=== PATIENT | male | born 1980 | race Caucasian/White ===

== ENCOUNTER 2017-10-09 12:38 | Emergency (ER) | payer SELFPAY ==
[~2017-10-09] VITALS: Ht 160 cm; Wt 79.4 kg
[2017-10-09 13:28] VITALS: BP 159/103; Ht 160 cm; Wt 79.4 kg
== END 2017-10-09 13:55 | disposition left against medical advice (07) ==
LOC: ED 12:38
DX: Z53.21 Procedure and treatment not carried out due to patient leaving prior to being seen by health care provider (principal)

== ENCOUNTER 2018-03-06 20:42 | Emergency (ER) | payer SELFPAY ==
[~2018-03-06] VITALS: Ht 162.6 cm; Wt 83.9 kg
[2018-03-06 21:53] VITALS: BP 158/97; Ht 162.6 cm; Wt 83.9 kg
== END 2018-03-06 23:55 | disposition home or self-care (01) ==
LOC: ED 20:42
DX: S93.401A Sprain of unspecified ligament of right ankle, initial encounter (principal); X58.XXXA Exposure to other specified factors, initial encounter; Y93.89 Activity, other specified; Y92.89 Other specified places as the place of occurrence of the external cause; Y99.8 Other external cause status

== ENCOUNTER 2018-03-30 22:55 | Emergency (ER) | payer SELFPAY ==
[~2018-03-30] VITALS: Ht 160 cm; Wt 81.3 kg
[2018-03-30 23:52] VITALS: Ht 160 cm; Wt 81.3 kg
[2018-03-31 02:00] VITALS: BP 137/101
== END 2018-03-31 02:00 | disposition home or self-care (01) ==
LOC: ED 22:55
DX: S62.603A Fracture of unspecified phalanx of left middle finger, initial encounter for closed fracture (principal); W01.0XXA Fall on same level from slipping, tripping and stumbling without subsequent striking against object, initial encounter; Y93.66 Activity, soccer; Y92.322 Soccer field as the place of occurrence of the external cause; Y99.8 Other external cause status

== ENCOUNTER 2018-08-27 19:16 | Emergency (ER) | payer SELFPAY ==
[~2018-08-27] VITALS: Ht 167.6 cm; Wt 86.2 kg
[2018-08-27 19:30] VITALS: BP 129/78; Ht 167.6 cm; Wt 86.2 kg
== END 2018-08-27 21:39 | disposition left against medical advice (07) ==
LOC: ED 19:16
DX: Z53.21 Procedure and treatment not carried out due to patient leaving prior to being seen by health care provider (principal)

== ENCOUNTER 2018-10-31 04:17 | Emergency (ER) | payer SELFPAY ==
[~2018-10-31] VITALS: Ht 160 cm; Wt 78.0 kg
[2018-10-31 04:22] VITALS: Ht 160 cm; Wt 78.0 kg
[2018-10-31 05:07] LABS: CALCIUM 8.5 mg/dL (8.5-10.1); CARBON DIOXIDE 29.3 mmol/L (21-32); CHLORIDE SERUM 103 mmol/L (98-107); CREATININE SERUM 0.8 mg/dL (0.7-1.3); GFR1 > 60 mL/min; GLUCOSE SERUM 109 mg/dL (74-106); POTASSIUM SERUM 3.6 mmol/L (3.5-5.1); SODIUM SERUM 139 mmol/L (136-145)
[2018-10-31 05:09] LABS: BASOPHIL % 0.7 % (0-2); PLATELET COUNT 203 x10^3mcL (130-400); RED CELL DISTRIBUTION WIDTH 13.4 % (11.5-14.5)
[2018-10-31 05:15] LABS: ALKALINE PHOSPHATASE 103 U/L (46-116); ALT/SGPT 131 U/L (16-63); AST/SGOT 121 U/L (15-37); BILIRUBIN TOTAL 0.58 mg/dL (0.20-1.00)
[2018-10-31 05:16] LABS: TOTAL PROTEIN, SERUM 8.8 g/dL (6.4-8.2)
[2018-10-31 06:08] VITALS: BP 160/92
== END 2018-10-31 06:08 | disposition home or self-care (01) ==
LOC: ED 04:17
PROVIDERS: Emergency Medicine
DX: R42 Dizziness and giddiness (principal); R74.0 Nonspecific elevation of levels of transaminase and lactic acid dehydrogenase [LDH]; Z98.890 Other specified postprocedural states
CPT/HCPCS: J7030; J8597

== ENCOUNTER 2019-01-02 11:04 | Emergency (ER) | payer SELFPAY ==
[~2019-01-02] VITALS: Ht 170.2 cm; Wt 77.6 kg
[2019-01-02 11:11] VITALS: Ht 170.2 cm; Wt 77.6 kg
[2019-01-02 11:27] LABS: microscopic required? NO
[2019-01-02 12:09] LABS: CALCIUM 8.4 mg/dL (8.5-10.1); CARBON DIOXIDE 28.8 mmol/L (21-32); CHLORIDE SERUM 104 mmol/L (98-107); CREATININE SERUM 0.8 mg/dL (0.7-1.3); GFR1 > 60 mL/min; GLUCOSE SERUM 145 mg/dL (74-106); POTASSIUM SERUM 3.5 mmol/L (3.5-5.1); SODIUM SERUM 142 mmol/L (136-145)
[2019-01-02 12:14] LABS: ALBUMIN 3.8 g/dL (3.4-5.0); ALKALINE PHOSPHATASE 112 U/L (46-116); ALT/SGPT 119 U/L (16-63); AST/SGOT 105 U/L (15-37); BILIRUBIN TOTAL 0.7 mg/dL (0.20-1.00); TOTAL PROTEIN, SERUM 8.2 g/dL (6.4-8.2)
[2019-01-02 12:26] LABS: BASOPHIL % 0.4 % (0-2); PLATELET COUNT 214 x10^3mcL (130-400); RED CELL DISTRIBUTION WIDTH 13.8 % (11.5-14.5)
[2019-01-02 12:42] LABS: UA SPECIFIC GRAVITY 1.015 (1.005-1.035); urine erythrocyte NEGATIVE (NEGATIVE)
[2019-01-02 12:43] LABS: AMPHETAMINE QUAL UR POSITIVE (See below)
[2019-01-02 13:35] VITALS: BP 143/87
== END 2019-01-02 13:35 | disposition home or self-care (01) ==
LOC: ED 11:04
PROVIDERS: Emergency Medicine
DX: R00.2 Palpitations (principal); F10.129 Alcohol abuse with intoxication, unspecified; F15.10 Other stimulant abuse, uncomplicated; Z98.890 Other specified postprocedural states
CPT/HCPCS: G0480; J7030; Q0092

== ENCOUNTER 2019-01-02 23:58 | Emergency (ER) | payer SELFPAY ==
[~2019-01-02] VITALS: Ht 160 cm; Wt 77.6 kg
[2019-01-03 00:13] VITALS: Ht 160 cm; Wt 77.6 kg
[2019-01-03 03:16] LABS: CALCIUM 9.1 mg/dL (8.5-10.1); CHLORIDE SERUM 103 mmol/L (98-107); CREATININE SERUM 0.7 mg/dL (0.7-1.3); GFR1 > 60 mL/min; GLUCOSE SERUM 96 mg/dL (74-106); POTASSIUM SERUM 4.2 mmol/L (3.5-5.1); SODIUM SERUM 139 mmol/L (136-145)
[2019-01-03 03:21] LABS: ALBUMIN 3.4 g/dL (3.4-5.0); ALKALINE PHOSPHATASE 102 U/L (46-116); ALT/SGPT 85 U/L (16-63); AST/SGOT 77 U/L (15-37); BILIRUBIN TOTAL 1.28 mg/dL (0.20-1.00); LIPASE 95 IU/L (73-393); TOTAL PROTEIN, SERUM 7.9 g/dL (6.4-8.2)
[2019-01-03 04:15] VITALS: BP 152/96
== END 2019-01-03 04:24 | disposition home or self-care (01) ==
LOC: ED 23:58
PROVIDERS: Emergency Medicine
DX: R11.10 Vomiting, unspecified (principal); R19.7 Diarrhea, unspecified; R10.13 Epigastric pain; Z98.890 Other specified postprocedural states
CPT/HCPCS: J1885; J2405; J7030

== ENCOUNTER 2019-01-03 18:37 | Emergency (ER) | payer SELFPAY ==
[~2019-01-03] VITALS: Ht 175.3 cm; Wt 79.8 kg
[2019-01-03 18:47] VITALS: BP 145/100
== END 2019-01-03 20:43 | disposition left against medical advice (07) ==
LOC: ED 18:37
DX: Z53.21 Procedure and treatment not carried out due to patient leaving prior to being seen by health care provider (principal)

== ENCOUNTER 2019-01-20 01:03 | Emergency (ER) | payer SELFPAY ==
[~2019-01-20] VITALS: Ht 160 cm; Wt 77.6 kg
[2019-01-20 01:08] VITALS: Ht 160 cm; Wt 77.6 kg
[2019-01-20 02:08] LABS: BASOPHIL % 0.7 % (0-2); PLATELET COUNT 256 x10^3mcL (130-400); RED CELL DISTRIBUTION WIDTH 13.9 % (11.5-14.5)
[2019-01-20 02:18] LABS: AMPHETAMINE QUAL UR NONE DETECTED (See below)
[2019-01-20 02:18] LABS: CALCIUM 9.4 mg/dL (8.5-10.1); CARBON DIOXIDE 28.4 mmol/L (21-32); CHLORIDE SERUM 106 mmol/L (98-107); CREATININE SERUM 0.7 mg/dL (0.7-1.3); GFR1 > 60 mL/min; GLUCOSE SERUM 118 mg/dL (74-106); POTASSIUM SERUM 3.9 mmol/L (3.5-5.1); SODIUM SERUM 148 mmol/L (136-145)
[2019-01-20 02:22] LABS: ALKALINE PHOSPHATASE 122 U/L (46-116); ALT/SGPT 115 U/L (16-63); AST/SGOT 112 U/L (15-37); BILIRUBIN TOTAL 0.48 mg/dL (0.20-1.00)
[2019-01-20 02:53] LABS: TOTAL PROTEIN, SERUM 8.9 g/dL (6.4-8.2)
[2019-01-20 05:08] VITALS: BP 153/80
== END 2019-01-20 05:09 | disposition home or self-care (01) ==
LOC: ED 01:03
PROVIDERS: Emergency Medicine
DX: R00.2 Palpitations (principal); E78.00 Pure hypercholesterolemia, unspecified; R94.5 Abnormal results of liver function studies; Z98.890 Other specified postprocedural states
CPT/HCPCS: 36415; Q0092

== ENCOUNTER 2019-09-13 04:30 | Emergency (ER) | payer OTHER ==
[~2019-09-13] VITALS: Ht 160 cm; Wt 87.1 kg
[2019-09-13 04:34] VITALS: Ht 160 cm; Wt 87.1 kg
[2019-09-13 06:36] LABS: CALCIUM 8.3 mg/dL (8.5-10.1); CARBON DIOXIDE 27.5 mmol/L (21-32); CHLORIDE SERUM 108 mmol/L (98-107); CREATININE SERUM 0.9 mg/dL (0.7-1.3); GFR1 > 60 mL/min; GLUCOSE SERUM 113 mg/dL (74-106); SODIUM SERUM 143 mmol/L (136-145)
[2019-09-13 06:37] LABS: BASOPHIL % 0.5 % (0-2); PLATELET COUNT 213 x10^3mcL (130-400); RED CELL DISTRIBUTION WIDTH 14.2 % (11.5-14.5)
[2019-09-13 06:43] LABS: AMPHETAMINE QUAL UR NONE DETECTED (See below)
[2019-09-13 06:55] LABS: FREE T4 1.36 ng/dL (0.76-1.46); FREE THYROXINE INDEX 2.1 ug/dL (1.4-4.5); T4(THYROXINE) 6.2 ug/dL (4.7-13.3)
[2019-09-13 07:00] LABS: T3 TOTAL 1.45 ng/mL
[2019-09-13 08:00] VITALS: BP 137/89
== END 2019-09-13 08:02 | disposition home or self-care (01) ==
LOC: ED 04:30
PROVIDERS: Emergency Medicine
DX: R00.2 Palpitations (principal); F10.99 Alcohol use, unspecified with unspecified alcohol-induced disorder; R06.02 Shortness of breath; Z98.890 Other specified postprocedural states
CPT/HCPCS: 36415; 84439; G0480; Q0092

== ENCOUNTER 2020-03-25 09:47 | Emergency (ER) | payer SELFPAY ==
[~2020-03-25] VITALS: Ht 165.1 cm; Wt 86.2 kg
[2020-03-25 09:52] VITALS: Ht 165.1 cm; Wt 86.2 kg
[2020-03-25 10:15] VITALS: BP 143/88
== END 2020-03-25 10:15 | disposition home or self-care (01) ==
LOC: ED 09:47
DX: S40.021A Contusion of right upper arm, initial encounter (principal); X58.XXXA Exposure to other specified factors, initial encounter; Y93.89 Activity, other specified; Y92.89 Other specified places as the place of occurrence of the external cause; Y99.8 Other external cause status